=== PATIENT | female | born 1995 | race Caucasian/White ===

== ENCOUNTER 2021-04-08 13:46 | Inpatient (IN) | payer BC ==
[2021-04-11] MEDS ORDERED: LIDOCAINE 0.5% (PF) 5 MG/ML (50 ML SDV) SQ PRN (06:23)
[2021-04-11] MEDS ORDERED: OXYTOCIN 10 UNIT/ML 1 ML VIAL IM PRN (06:23)
[2021-04-11] MEDS ORDERED: CARBOPROST TROMETHAMINE 250 MCG/ML 1 ML AMP IM PRN (06:23)
[2021-04-11] MEDS ORDERED: METHYLERGONOVINE 0.2 MG/ML 1 ML AMP IM PRN (06:23)
[2021-04-11] MEDS ORDERED: TERBUTALINE 1 MG/ML VIAL SQ PRN (06:23)
[2021-04-11] MEDS ORDERED: OXYTOCIN 30 UNITS/500 ML NS 30 UNIT in SALINE 1 500ML.BAG IV SCH (06:30)
[2021-04-11] MEDS: LACTATED RINGERS 1,000 ML IV SCH ×3 (06:31→22:21)
[2021-04-11 06:51] LABS: Basophils # (A) 0.1 k/uL (0-0.2); Basophils % (A) 1 %; Eosinophils # (A) 0.1 k/uL (0-0.7); Eosinophils % (A) 1 %; HCT 36.7 % (34.0-46.0); HGB 12.9 gm/dL (11.4-16.0); Lymphocytes # (A) 2.8 k/uL (1.0-4.8); Lymphocytes % (A) 29 %; MCH 31.2 pg (25.0-35.0); MCHC 35.1 g/dL (31.0-37.0); MCV 88.7 fL (80.0-100.0); Mean Platelet Volume 8.2; Monocytes # (A) 0.5 k/uL (0-1.0); Monocytes % (A) 5 %; Neutrophils # (A) 6.3 k/uL (1.3-7.7); Neutrophils % (A) 64 %; Platelet Count 249 k/uL (150-450); RBC 4.13 m/uL (3.80-5.40); RDW 12.9 % (11.5-15.5); WBC 9.8 k/uL (3.8-10.6)
--- NOTE | 2021-04-11 08:08 | P.HPOB ---
History of Present Illness H&P Date: 04/11/21 Chief Complaint: Here for induction of labor for postdates This is a 25-year-old white female 1 para 0 EDC 04/06/2021 at 40-5/7 weeks' gestation. Patient presents today for induction with reasonably favorable cervix, for postdates . Fetus is been active, she denies fluid leakage or vaginal bleeding. She is having mild irregular uterine contrac tions Past medical history is unremarkable. Past surgical history is negative. Current medications vitamins daily, baby aspirin daily. ALLERGIES include penicillin and seasonal ALLERGIES, reaction unknown. Family history is significant for hypertension, kidney disease, bladder cancer, ovarian cancer, breast cancer. Social history patient is a former tobacco smoker one pack per day, none with . 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 She is single, father of the baby is present and involved. She denies alcohol or drug use. Obstetric history is significant for group B strep cultures negative, blood type AB+, rubella status immune. Pap smear, urine culture, hepatitis B surface a ntigen, HIV testing, GC and chlamydia cultures all negative. One-hour Glucola 105. On examination patient is 5 foot 7 inches, 235 pounds, blood pressure 144/78, pulse 78, respirations 16, temperature 97.4. The general physical exam is within normal limits. The chest is clear in all louise. The extremities reveal trace edema. Cervix is 2 cm dilated, 60% effaced, -2 station, soft, slightly posterior. Artificial amniorrhexis reveals clear fluid. heart rate is in the 130s with frequent accelerations consistent with reactive NST. Impression: 40-5/7 weeks intrauterine , here for induction of labor, irregular spontaneous contractions noted. All signs reassuring. Plan: Oxytocin per hospital protocol. Close maternal and surveillance. Analgesic options reviewed with the patient. Anticipate normal spontaneous vaginal delivery. Review of Systems Constitutional: Reports as per HPI Past Medical History Additional Past Medical History / Comment(s): Gallstones History of Any Multi-Drug Resistant Organisms: None Reported Additional Past Surgical History / Comment(s): Crum tooth extraction Past Anesthesia/Blood Transfusion Reactions: No Reported Reaction Past Psychological History: Anxiety, Bipolar, Depression Smoking Status: Never smoker Past Alcohol Use History: None Reported Past Drug Use History: None Reported - Past Family History Father Additional Family Medical History / Comment(s): Kidney Disease Medications and Allergies Home Medications Medication Instructions Recorded Confirmed Type Aspirin 81 mg PO DAILY 04/11/21 04/11/21 History Pnv No.95/Ferrous Fum/Folic AC 1 each PO DAILY 04/11/21 04/11/21 History [ Multivitamin Tablet] Allergies Allergy/AdvReac Type Severity Reaction Status Date / Time Penicillins Allergy Rash/Hives Verified 04/11/21 06:22 Exam Vital Signs Temp Pulse Resp BP 04/11/21 06:25 97.4 F L 78 16 144/78 Intake and Output 04/10/21 04/11/21 04/11/21 22:59 06:59 14:59 Other: Weight 106.594 kg See dictation under HPI please Results Result Diagrams: 04/11/21 06:30 Assessment and Plan Assessment: 40-5/7 weeks intrauterine , here for induction of labor. All signs reassuring. Plan: Continue close surveillance. Oxytocin per hospital protocol. Analgesic options reviewed with the patient. Anticipate normal spontaneous vaginal delivery. Time with Patient: Less than 30
[2021-04-11] MEDS ORDERED: SODIUM CHLORIDE 0.9% 100 ML BAG ONE (12:45)
[2021-04-11] MEDS ORDERED: fentaNYL (PF) 50 MCG/ML 5 ML AMP ONE (12:45)
[2021-04-11] MEDS ORDERED: ROPIVACAINE 5MG/ML 20ML VIAL ONE (12:45)
[2021-04-11] MEDS ORDERED: CITRIC ACID-SODIUM CITRATE 15 ML CUP PO ONE (19:28)
[2021-04-11] MEDS ORDERED: DEXAMETHASONE SOD PHOSPHATE 10 MG/ML 1 ML VIAL ONE (19:32)
[2021-04-11] MEDS ORDERED: ONDANSETRON 4 MG/2 ML VIAL ONE (19:32)
[2021-04-11] MEDS ORDERED: MORPHINE SULFATE (PF) 0.3 MG/0.3 ML SYR ONE (19:32)
[2021-04-11] MEDS ORDERED: MIDAZOLAM 2 MG/2 ML VIAL ONE (19:32)
[2021-04-11] MEDS ORDERED: OXYTOCIN 30 UNITS/500 ML NS BAG IV ONE (19:32)
[2021-04-11] MEDS ORDERED: diphenhydrAMINE 25 MG CAP PO PRN (20:27)
[2021-04-11] MEDS ORDERED: NALOXONE 0.4 MG/ML 1 ML VIAL IV PRN (20:27)
[2021-04-11] MEDS ORDERED: SIMETHICONE 80 MG CHEWABLE PO PRN (20:27)
[2021-04-11] MEDS ORDERED: METOCLOPRAMIDE 5 MG/ML 2 ML VIAL IVP PRN (20:27)
[2021-04-11] MEDS ORDERED: ONDANSETRON 4 MG/2 ML VIAL IVP PRN (20:27)
[2021-04-11] MEDS ORDERED: diphenhydrAMINE 50 MG CAP PO PRN (20:27)
[2021-04-11] MEDS ORDERED: diphenhydrAMINE 50 MG/ML 1 ML VIAL IVP PRN ×2 (20:27)
[2021-04-11] MEDS ORDERED: ZOLPIDEM 5 MG TAB PO PRN (20:27)
--- NOTE | 2021-04-11 20:27 | P.OP ---
Date of Procedure: 04/11/21 Preoperative Diagnosis: 40-5/7 weeks intrauterine , arrest of dilatation and descent. Postoperative Diagnosis: Right occiput transverse position. Procedure(s) Performed: Primary low transverse section Anesthesia: epidural Surgeon: Bela Mcintyre Relationship Banker #1: Alicia Hidalgo Estimated Blood Loss (ml): 500 IV fluids (ml): 800 Urine output (ml): 300 Pathology: none sent Condition: stable Disposition: PACU Operative Findings: Liveborn male infant, scores 8 and 9, right occiput transverse position. Description of Procedure: Patient had arrest of dilatation at 3 cm dilated, 70% effaced, -2 station for 5 hours despite Pitocin augmentation 20 5M use. Decision was made to proceed with primary low transverse section. 2 g of Ancef are given, vaginal prep performed, Quiroga catheter placed. Informed consent is reviewed signed witnessed and dated. Patient is brought back to the operating room where the previously placed epidural was topped off per anesthesia staff. She's placed in the dorsal supine position with left lateral uterine displacement. The abdomen is prepped and draped in usual sterile fashion. The appropriate timeout is performed to assure proper patient and procedural identification. Analgesia is checked and noted to be adequate. A low transverse skin incision is made in this is carried down through the subcutaneous tissue that approximately 4-5 cm deep. Fascia is isolated, scored, extended bilaterally with curved Sepulveda scissors. Peritoneum is next identified and incised, there is no bowel or bladder involvement. Bladder blade is placed over the dome of the bladder and at all times the bladder was protected from the surgical field. A low transverse uterine incision is made, extended bilaterally with blunt dissection. Infant is found to be in the right occiput transverse position. The 's head is delivered, the oropharynx, nasopharynx, and external nares are all bulb suctioned. Patient is officially delivered of a liveborn male infant at 1946 hrs. delivers manually, it is inspected and noted to be intact with trivascular cord at 1947 hrs. Uterus is then externalized and massaged. Oxyto jose alejandro is given. The uterus is wiped clean with a sterile sponge to avoid any retained products of conception. Incision of the uterus is grasped with Sanchez clamps and the uterus is closed in a two-step fashion. First layer is running locking using 0 Vicryl. Second layer is imbricated using 0 Vicryl. Excellent reapproximation and hemostasis is noted. Bilateral tubes and ovaries appear normal. Abdomen is now suction posterior to the uterus with a suction heart. Uterus is gently placed back into the abdominal cavity. Bilateral gutters are inspected and cleaned. Peritoneum is allowed to close by secondary intention. Fascia is closed in a running stitch of 0 Vicryl with over ligation in the midline. Subcutaneous tissue is irrigated, clean and dry. It is reapproximated with 3-0 Vicryl in a running manner. 4-0 undyed Monocryl is used for final skin closure. Steri-Strips and Mastisol are applied to the wound. All sponge needle and enhancement counts are correct. Uterus is massaged for a small amount of bleeding. Quiroga is noted to be draining clear urine, total urine output 300 mL's. Total fluid replacement in the OR 800 mL's. 's weight 7 lbs. 1 oz. or 3190 g. Family is allowed to begin the bonding experience in the LDR.
[2021-04-11] MEDS ORDERED: LACTATED RINGERS 1,000 ML IV SCH (20:30)
[2021-04-11] MEDS: IBUPROFEN 600 MG TAB PO SCH (20:35)
[2021-04-12 06:28] LABS: Basophils % (A) 0 %; Eosinophils % (A) 0 %; HCT 31.1 % (34.0-46.0); HGB 11.2 gm/dL (11.4-16.0); Lymphocytes # (A) 1.3 k/uL (1.0-4.8); Lymphocytes % (A) 9 %; MCHC 36.1 g/dL (31.0-37.0); MCV 88.6 fL (80.0-100.0); Mean Platelet Volume 8.4; Monocytes # (A) 0.5 k/uL (0-1.0); Monocytes % (A) 4 %; Neutrophils # (A) 12.5 k/uL (1.3-7.7); Neutrophils % (A) 87 %; Platelet Count 224 k/uL (150-450); RBC 3.51 m/uL (3.80-5.40); RDW 13.6 % (11.5-15.5); WBC 14.5 k/uL (3.8-10.6)
[2021-04-12] MEDS: IBUPROFEN 600 MG TAB PO SCH ×2 (07:29→17:39)
--- NOTE | 2021-04-12 07:34 | P.PN ---
Progress Note - Text Progress Note Date: 04/12/21 (647) Anesthesia Postop day 1 Subjective: Status Post section with Duramorph. Patient seen and examined. Doing well without complaint. VAS 4 out of 10rest able. No nausea vomiting or pruritus. As fever. Gross lower extremity strength intact. . Without apparent anesthetic complications. Objective: Vital signs reviewed Heart: Regular Rate Lungs: Good chest excursion Abdomen: Appears nondistended Assessment: Status post with Duramorph postop day 1 Plan: Continue current care with your medical management. Anticipated and the Duramorph around 7pm tonight, you may see increased pain needs around this time.
--- NOTE | 2021-04-12 07:54 | P.PN ---
Subjective Progress Note Date: 04/12/21 Principal diagnosis: Doing well postoperative day #1 Positive flatus. Pain well managed. No complaints. Minimal to moderate lochia. Objective - Vital Signs Vital signs: Vital Signs Temp 97.9 F 04/12/21 04:00 Pulse 80 04/12/21 04:00 Resp 16 04/12/21 04:00 BP 128/74 04/12/21 04:00 Pulse Ox 100 04/11/21 20:24 Intake & Output 04/11/21 04/12/21 04/12/21 18:59 06:59 18:59 Intake Total 1300 Output Total 1450 Balance 1300 -1450 Intake: IV 1300 Output: Urine 450 Estimated Blood Loss 1000 Other: # Voids 3 - Constitutional General appearance: Present: average body habitus - EENT Eyes: Present: PERRLA ENT: Present: hearing grossly normal - Neck Neck: Present: normal ROM - Respiratory Respiratory: bilateral: CTA - Cardiovascular Rhythm: regular - Gastrointestinal Gastrointestinal Comment(s): Fundus firm, midline, symmetric, 18 week size. Incision clean and dry, intact, Steri-Strips applied. General gastrointestinal: Present: normal bowel sounds - Integumentary Integumentary: Present: normal - Neurologic Neurologic: Present: CNII-XII intact - Musculoskeletal Musculoskeletal: Present: gait normal, strength equal bilaterally - Psychiatric Psychiatric: Present: A&O x's 3, appropriate affect, intact judgment & insight - Labs CBC & Chem 7: 04/12/21 06:10 Labs: Abnormal Lab Results - Last 24 Hours (Table) 04/12/21 Range/Units 06:10 WBC 14.5 H (3.8-10.6) k/uL RBC 3.51 L (3.80-5.40) m/uL Hgb 11.2 L (11.4-16.0) gm/dL Hct 31.1 L (34.0-46.0) % Neutrophils # 12.5 H (1.3-7.7) k/uL Assessment and Plan Assessment: Doing well day #1 Plan: Continue postoperative care. Circumcision this morning. Likely discharge home tomorrow. Advance diet and activity. Time with Patient: Less than 30
[2021-04-12] MEDS: SENNOSIDES-DOCUSATE SODIUM 1 EACH TAB PO SCH ×2 (17:54→23:15)
[2021-04-12] MEDS: ACETAMINOPHEN TAB 500 MG TAB PO SCH ×2 (17:54→23:15)
[2021-04-12] MEDS: LACTATED RINGERS 1,000 ML IV SCH (17:55)
[2021-04-13] MEDS: IBUPROFEN 600 MG TAB PO SCH ×3 (05:57→11:27)
--- NOTE | 2021-04-13 07:28 | P.PN ---
Subjective Progress Note Date: 04/13/21 Principal diagnosis: Doing well second postoperative day Slept well, pain well controlled. Breast-feeding going well. Patient anxious for discharge home. Objective - Vital Signs Vital signs: Vital Signs Temp 98.4 F 04/13/21 00:00 Pulse 75 04/13/21 00:00 Resp 16 04/13/21 00:00 BP 118/70 04/13/21 00:00 Pulse Ox 97 04/13/21 00:00 Intake & Output 04/12/21 04/13/21 04/13/21 18:59 06:59 18:59 Intake Total 300 Output Total 800 Balance -500 Intake: IV 300 Output: Urine 800 Other: # Voids 2 2 - Constitutional General appearance: Present: average body habitus, obese - EENT Eyes: Present: PERRLA ENT: Present: hearing grossly normal - Respiratory Respiratory: bilateral: CTA - Cardiovascular Rhythm: regular - Gastrointestinal Gastrointestinal Comment(s): Incision clean and dry, intact, Steri-Strips applied. Fundus firm, midline, symmetric, 18 week size. General gastrointestinal: Present: normal bowel sounds - Neurologic Neurologic: Present: CNII-XII intact - Musculoskeletal Musculoskeletal: Present: gait normal, strength equal bilaterally - Psychiatric Psychiatric: Present: A&O x's 3, appropriate affect, intact judgment & insight - Labs CBC & Chem 7: 04/12/21 06:10 Assessment and Plan Assessment: Doing well second postoperative day Plan: Patient would like to be discharged home later today. This will be pending pediatricians assessment and plan for infant. Likely discharge home this afternoon, if not we'll discharge home tomorrow morning. Circumcision has been performed. Time with Patient: Less than 30
[2021-04-13] MEDS: SENNOSIDES-DOCUSATE SODIUM 1 EACH TAB PO SCH (08:14)
[2021-04-13] MEDS: ACETAMINOPHEN TAB 500 MG TAB PO SCH ×2 (08:14→09:34)
[2021-04-13] MEDS: LACTATED RINGERS 1,000 ML IV SCH (09:32)
[2021-04-13 09:43] VITALS: BP 138/81; PULSE 78; RESP 18; TEMP 97.7
--- NOTE | 2021-04-14 08:58 | P.DS ---
Providers Date of admission: 04/11/21 06:09 Expected date of discharge: 04/13/21 Attending physician: Bela Mcintyre Primary care physician: Stated None Hospital Course: This is a 25-year-old white female 1 para 0 EDC 04/06/2021 at 40-5/7 weeks' gestation. Patient presented for induction of labor for postdates and reasonably favorable cervix. Blood type A B+, rubella status immune, group B strep cultures negative. Please see dictated history and physical for details. Patient progressed through labor through the entire day but never dilated past 3 cm. Arrest of dilatation was noted and she underwent a primary low transverse section. She gave to a liveborn male weighing 7 lbs. 1 oz., or 3190 g. Estimated blood loss 500 mL's. No issues with the surgery, infant was found to be in the transverse position. Please see dictated operative note for details. Postoperatively the patient did well. Circumcision was performed on her who also did well. Patient was voiding, ambulate in, passing flatus without difficulty at the time of discharge. Incision is clean and dry, intact, Steri- Strips applied. Extremities are negative for edema. Breasts are not engorged. Breast pump prescription is provided. Patient has minimal lochia rubra and was judged to be in very good condition for discharge home. She will follow-up in the office with me in 2 weeks for incision check. I have reminded her no intercourse, tampons or douching. She will use [id number] Advil or Aleve, or Motrin as needed for pain. She will call with any fevers shakes or chills, foul smelling or copious lochia, with the passage of large blood clots, with any pain not alleviated by [id number] products, or indeed with any concerns. Have briefly discussed contraceptive options and we will discuss this further in the office when appropriate. Assessment: Doing well postoperative day number two Patient Condition at Discharge: Good Plan - Discharge Summary Discharge Rx Participant: No New Discharge Prescriptions: No Action Aspirin 81 mg PO DAILY Pnv No.95/Ferrous Fum/Folic AC [ Multivitamin Tablet] 1 each PO DAILY Discharge Medication List Aspirin 81 mg PO DAILY 04/11/21 [History] Pnv No.95/Ferrous Fum/Folic AC [ Multivitamin Tablet] 1 each PO DAILY 04/11/21 [History] Follow up Appointment(s)/Referral(s): Bela Mcintyre MD [STAFF PHYSICIAN] - 2 Weeks Discharge Disposition: HOME SELF-CARE
== END 2021-04-13 11:25 | disposition home or self-care (01) | DRG 788 ==
LOC: 4FBP 04-11 06:09
PROVIDERS: ADMIT Obstetrics & Gynecology; ATTEND Obstetrics & Gynecology
PROC: 3E033VJ Introduction of Other Hormone into Peripheral Vein, Percutaneous Approach (ICD-10-PCS; 2021-04-11)
PROC: 3E0P7VZ Introduction of Hormone into Female Reproductive, Via Natural or Artificial Opening (ICD-10-PCS; 2021-04-11)
PROC: 4A0HX4Z Measurement of Products of Conception, Cardiac Electrical Activity, External Approach (ICD-10-PCS; 2021-04-11)
PROC: 10907ZC Drainage of Amniotic Fluid, Therapeutic from Products of Conception, Via Natural or Artificial Opening (ICD-10-PCS; 2021-04-11)
PROC: 10D00Z1 Extraction of Products of Conception, Low, Open Approach (ICD-10-PCS; principal; 2021-04-11 06:30)
DX: O62.0 Primary inadequate contractions (principal); F31.9 Bipolar disorder, unspecified; O48.0 Post-term pregnancy; F41.9 Anxiety disorder, unspecified; J30.2 Other seasonal allergic rhinitis; O99.513 Diseases of the respiratory system complicating pregnancy, third trimester; O99.343 Other mental disorders complicating pregnancy, third trimester; Z79.82 Long term (current) use of aspirin; Z3A.40 40 weeks gestation of pregnancy; Z88.0 Allergy status to penicillin; Z37.0 Single live birth; Z87.891 Personal history of nicotine dependence; Z87.19 Personal history of other diseases of the digestive system
CPT/HCPCS: 85025; 86850; 86900; 86901